=== PATIENT | male | born 1970 ===

== ENCOUNTER 2016-12-26 13:34 | Emergency (ER) | payer OTHER ==
[2016-12-26 13:40] VITALS: RESP 18
--- NOTE | 2016-12-26 14:12 | C.PDOC ---
History Of Present Illness 46 yr old male presents to the ER with complaints of persistent FB sensation in the right side of throat for the past 1 week. Patient states the pain started after eating fish and is concerned about possible foreign body. Patient states the pain is worsened with swallowing but states "happens only sometimes". Denies chest pain, SOB, mouth swelling or neck pain. PERSIST FB SENSATION R THROAT X 1 WEEK. ONSET AFTER EATING FISH, CONCERNED ABOUT POSSIBLE FB. WORSE W SWALLOWING BUT "HAPPENS ONLY SOMETIMES". NO OTHER ASSOC SX EXAM HEENT NEG NO PALP NODES SUPPLE Time Seen by Provider: 12/26/16 14:00 Chief Complaint (Nursing): ENT Problem History Per: Patient History/Exam Limitations: no limitations Onset/Duration Of Symptoms: Persistent (1 week ) Current Symptoms Are (Timing): Still Present Location Of Pain: Throat Sick Contacts (Context): None Past Medical History Reviewed: Historical Data, Nursing Documentation, Vital Signs Vital Signs: Last Vital Signs Temp 97.4 F L 12/26/16 16:01 Pulse 68 12/26/16 16:01 Resp 18 12/26/16 16:01 BP 123/74 12/26/16 16:01 Pulse Ox 98 12/26/16 16:01 Family History: States: No Known Family Hx - Social History Hx Alcohol Use: Yes Hx Substance Use: No - Immunization History Hx Tetanus Toxoid Vaccination: No Hx Influenza Vaccination: No Hx Pneumococcal Vaccination: No Review Of Systems Except As Marked, All Systems Reviewed And Found Negative. ENT: Positive for: Throat Pain (FB in the right side of throat and while swallowing). Negative for: Mouth Swelling Cardiovascular: Negative for: Chest Pain Respiratory: Negative for: Shortness of Breath Musculoskeletal: Negative for: Neck Pain Physical Exam - Physical Exam Appears: Non-toxic, No Acute Distress Skin: Warm, Dry, No Rash Head: Atraumatic, Normacephalic Oral Mucosa: Moist Throat: Normal, No Erythema, No Exudate, No Drooling, No Mass Neck: Normal, Normal ROM, Supple, Other (No palpable nodes ) Lymphatic: No Adenopathy Chest: Symmetrical, No Tenderness Cardiovascular: Rhythm Regular, No Murmur Respiratory: Normal Breath Sounds, No Rales, No Rhonchi, No Stridor, No Wheezing Extremity: Normal ROM, No Swelling Neurological/Psych: Oriented x3, Normal Speech ED Course And Treatment O2 Sat by Pulse Oximetry: 97 (RA ) Pulse Ox Interpretation: Normal - Other Rad X-Ray - Neck Soft Tissue X-Ray: Interpreted by Me, Viewed By Me Interpretation: Negative. - CT Scan/US CT - Neck Soft Tissue Other Rad Studies (CT/US): Read By Radiologist, Radiology Report Reviewed CT/US Interpretation: No acute findings. Reevaluation Time: 15:55 Reassessment Condition: Unchanged (NAD APPEARS COMFORTABLE. CT NEG) Medical Decision Making Medical Decision Making: PLAN: * CT - Neck Soft Tissue * X-Ray - Neck Soft Tissue Disposition Counseled Patient/Family Regarding: Studies Performed, Diagnosis, Need For Followup - Disposition Referrals: YOUR,PMD [Other] Disposition: HOME/ ROUTINE Disposition Time: 15:56 Condition: GOOD Additional Instructions: THERE IS NO BONY FOREIGN BODY ON YOUR NECK AND CAT SCAN Forms: [facility] (Bulgarian), General Discharge Instructions - Clinical Impression Clinical Impression: Foreign body sensation in throat - Scribe Statement The provider has reviewed the documentation as recorded by the Angie Carrasco Provider Attestation: All medical record entries made by the Angie were at my direction and personally dictated by me. I have reviewed the chart and agree that the record accurately reflects my personal performance of the history, physical exam, medical decision making, and the department course for this patient. I have also personally directed, reviewed, and agree with the discharge instructions and disposition.
--- NOTE | 2016-12-26 15:46 | CT ---
EXAM: CT Neck Without Intravenous Contrast CLINICAL HISTORY: 46 years old, male; Signs and symptoms; Other: Fb fish bone; Additional info: R sided fb sensation RO fish bone, foreign body TECHNIQUE: Axial computed tomography images of the neck without intravenous contrast. This CT exam was performed using one or more of the following dose reduction techniques: automated exposure control, adjustment of the mA and/or kV according to patient size, and/or use of iterative reconstruction technique. Coronal and sagittal reformatted images were created and reviewed. EXAM DATE/TIME: Exam ordered 12/26/2016 2:12 PM COMPARISON: No relevant prior studies available. FINDINGS: Nasopharynx: Unremarkable. Oropharynx: Unremarkable. No significant tonsillar enlargement. Hypopharynx: Unremarkable. Larynx: Unremarkable. Normal epiglottis. Trachea: Unremarkable. Retropharyngeal space: Unremarkable. Submandibular/parotid glands: Unremarkable. Glands are normal in size. Thyroid: Unremarkable. No enlarged or calcified nodules. Bones/joints: No acute fracture. Soft tissues: Unremarkable. Vasculature: No acute findings. Lymph nodes: Scattered lymph nodes are noted in the posterior cervical space and coby-submandibular space. Lung apices: Unremarkable as visualized. IMPRESSION: No acute findings. No foreign body seen.
[2016-12-26 16:02] VITALS: BP 123/74; PULSE 68; TEMP 97.4
--- NOTE | 2016-12-26 17:09 | RAD ---
Neck soft tissue two views History: Evaluate for foreign body. Comparison: None available. Findings: Question minimal prevertebral soft tissue swelling, nonspecific. No discrete radiopaque foreign body identified. Visualized osseous structures demonstrate degenerative changes. Impression: Question minimal prevertebral soft tissue swelling, nonspecific. Correlation with neck CT may be helpful if clinically indicated.
[2016-12-26 17:20] VITALS: O2SAT 97
== END 2016-12-26 16:02 | disposition home or self-care (01) ==
LOC: C.ER 13:34
DX: R09.89 Other specified symptoms and signs involving the circulatory and respiratory systems (principal)